=== PATIENT | male | born 1990 | race Caucasian/White ===

== ENCOUNTER 2024-03-01 13:05 | Emergency (ER) | payer MEDICAID ==
[~2024-03-01] VITALS: Ht 177.8 cm; Wt 74.0 kg
[2024-03-01 13:08] VITALS: O2SAT 99
[2024-03-01 13:13] VITALS: BP 120/79; PULSE 54; RESP 18; TEMP 98.2; O2SAT 100
[2024-03-01] MEDS ORDERED: IBUP-2030 MT (14:16)
[2024-03-01] MEDS ORDERED: LIDO700A30 TP (14:16)
== END 2024-03-01 14:59 | disposition home or self-care (01) ==
LOC: ER 13:05
DX: M54.9 Dorsalgia, unspecified (principal); J45.909 Unspecified asthma, uncomplicated
CPT/HCPCS: 99283

== ENCOUNTER 2024-08-23 15:40 | Emergency (ER) | payer MEDICAID ==
[~2024-08-23] VITALS: Ht 180.3 cm; Wt 73.0 kg
[~2024-08-23 15:40] MED LIST: IBUP-2030 MT; LIDO700A30 TP
[2024-08-23 15:48] VITALS: TEMP 36.8; O2SAT 100
[2024-08-23 16:27] VITALS: BP 125/79; PULSE 74; RESP 18
[2024-08-23] MEDS: KETOROLAC 30MG/ML VIAL IM ONE (16:27)
[2024-08-23] MEDS: ONDANSETRON 4MG ODT PO ONE (16:27)
[2024-08-23 16:37] LABS: BASOPHILS % 1.1 % (0.0-2.0); EOSINOPHILS % 1.7 % (0.0-5.0); HEMATOCRIT. 41.7 % (42.0-52.0); HEMOGLOBIN. 14.1 g/dL (14.0-18.0); LYMPHOCYTES % 36.3 % (20.0-50.0); MEAN CORPUSCULAR HGB CONC 33.8 g/dL (31.0-37.0); MEAN CORPUSCULAR VOLUME 88.6 fL (80.0-94.0); MEAN PLATELET VOLUME 7.6 fl (7.4-10.4); MONOCYTES % 8.7 % (2.0-8.0); NEUTROPHILS % 52.2 % (40.0-76.0); PLATELET 353 x1000/uL (130-400); RED BLOOD CELL COUNT 4.71 mill/uL (4.7-6.1); RED CELL DISTRIBUTION WIDTH 14.3 % (11.6-14.6); WHITE BLOOD COUNT 7.3 x1000/uL (4.5-11.0)
[2024-08-23 16:39] LABS: CHLORIDE 104 mEq/L (98-107); POTASSIUM 4.2 mEq/L (3.5-5.1); SODIUM 140 mEq/L (136-145)
[2024-08-23 16:41] LABS: CALCIUM 9.4 mg/dL (8.7-10.4); CARBON DIOXIDE 27 mEq/L (21-32)
[2024-08-23 16:46] LABS: GLUCOSE 78 mg/dL (70-105)
[2024-08-23 16:47] LABS: UREA NITROGEN BLOOD 12 mg/dL (9-23)
[2024-08-23 16:48] LABS: ALANINE AMINOTRANSFERASE 17 IU/L (10-49); ALBUMIN 4.2 g/dL (3.2-4.8); ASPARTATE AMINOTRANSFERASE 17 IU/L (<34); BILIRUBIN DIRECT 0.2 mg/dL (<=3.0)
[2024-08-23 16:49] LABS: BILIRUBIN TOTAL 0.7 mg/dL (0.1-1.0)
[2024-08-23] MEDS ORDERED: POLY17PO3 MT (18:34)
== END 2024-08-23 19:19 | disposition home or self-care (01) ==
LOC: ER 15:40
DX: K59.00 Constipation, unspecified (principal); J45.909 Unspecified asthma, uncomplicated
CPT/HCPCS: 99285; 74176; 80076; 80048; 83690; 85025; 36415; 96372; J1885; Q0162

== ENCOUNTER 2024-12-25 11:04 | Emergency (ER) | payer MEDICAID ==
[~2024-12-25] VITALS: Ht 180.3 cm; Wt 72.0 kg
[~2024-12-25 11:04] MED LIST changes: +POLY17PO3 MT
[2024-12-25 11:08] VITALS: O2SAT 99
[2024-12-25 11:17] VITALS: BP 128/82; PULSE 70; RESP 14; TEMP 36.7; O2SAT 100
[2024-12-25 12:11] LABS: CLARITY URINE CLEAR (CLEAR); COLOR URINE DARK YELLOW (YELLOW); GLUCOSE URINE NEGATIVE (NEGATIVE); KETONES URINE TRACE (NEGATIVE); LEUKOCYTE ESTERASE URINE NEGATIVE (NEGATIVE); NITRITE URINE NEGATIVE (NEGATIVE); OCCULT BLOOD URINE NEGATIVE (NEGATIVE); PH URINE 6.5 (4.5-8.0); PROTEIN URINE TRACE (NEGATIVE); SPECIFIC GRAVITY URINE 1.027 (1.005-1.030); UROBILINOGEN URINE 1.0 E.U./dL (0.2-1.0)
[2024-12-25 12:28] LABS: MUCUS URINE 1+ /lpf (NONE/TRACE); SQUAMOUS EPITHELIAL CELL URINE RARE /lpf (RARE/1+)
[2024-12-25 12:29] LABS: BACTERIA URINE 1+; RBC URINE 0-2 /hpf (0-2)
[2024-12-25 12:30] LABS: WBC URINE 0-2 /hpf (0-2)
[2024-12-27 04:10] LABS: CHLAMYDIA TRACHOMATIS NAA Negative (Negative); NEISSERIA GONORRHOEAE NAA Negative (Negative)
== END 2024-12-25 14:17 | disposition home or self-care (01) ==
LOC: ER 11:04
DX: R30.0 Dysuria (principal); Z11.3 Encounter for screening for infections with a predominantly sexual mode of transmission; J45.909 Unspecified asthma, uncomplicated; F10.90 Alcohol use, unspecified, uncomplicated; Y90.9 Presence of alcohol in blood, level not specified
CPT/HCPCS: 81003; 87491; 87591; 99283